=== PATIENT | male | born 1945 | race Caucasian/White ===

== ENCOUNTER 2019-09-21 09:35 | Outpatient (CLI) | payer MEDICARE ==
--- NOTE | 2019-09-21 11:11 | CT ---
CT ANGIOGRAM NECK WITH CONTRAST: DATE: 09/21/2019 HISTORY: 74-year-old male with "transient right retinal artery occlusion. Right carotid bruit" Dr. Anderson notified Dr. Yahir Huitron of the critical stenosis by telephone at 11:08 AM on posterior toda y. TECHNIQUE: After IV contrast injection, arterial bolus chasing technique scan performed from aortopulmonic windo w to mid maxillary sinus level. Coronal and sagittal 3-D MIP reconstructions. FINDINGS: Aortic arch: No dissection or aneurysm. Brachiocephalic: Normal. Right subclavian: Partially obscured by streak artifact from adjacent dense contrast bolus in right s ubclavian vein. Left subclavian: No high-grade stenosis. Right common carotid: No high-grade stenosis. Left common carotid: No high-grade stenosis. Right internal carotid: Mild calcified plaque at origin. From approximately 0.5 cm distal to the orig in to approximately 2.5 to 3 cm distal to the origin, there is a noncalcified soft plaque causing stenosis. The greatest degree of stenosis is approximately 90-99% at the distal aspect of the plaque, located approximately 2.5 cm distal to the origin of the internal carotid artery. The rest of the right cervical internal carotid artery more distally has no additional high-grade stenosis. Carotid s iphons are not included on the images. Left internal carotid: Mild calcified plaque at origin. No significant stenosis. Right vertebral: Dominant. No high-grade stenosis at origin. Very proximal portion distal to origin i s obscured by streak artifact from adjacent dense contrast material in a vein. No high-grade stenosis in the rest of the cervical vertebral artery. Left vertebral: Origin difficult to evaluate. 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
== END 2019-09-21 09:36 | disposition home or self-care (01) ==
LOC: SCSCT 09:35
PROVIDERS: ATTEND Ophthalmology
DX: R09.89 Other specified symptoms and signs involving the circulatory and respiratory systems (principal); I65.21 Occlusion and stenosis of right carotid artery
CPT/HCPCS: 70498

== ENCOUNTER 2024-11-10 09:30 | Inpatient (IN) | payer MEDICARE ==
[2024-11-10 12:14] LABS: Bacteria/HPF None Seen HPF (None Seen); Bilirubin Negative (Negative); Blood, Urine Negative (Negative); CAUTI Indications for Culture Dysuria,urgency,freq; Clarity Clear (Clear); Glucose, Urine (Dipstick) Normal (Negative); Ketone, Urine Negative (Negative); Leukocyte Negative Leu/uL (Negative); Nitrite Negative (Negative); Protein, Urine (Dipstick) Negative (Neg-Trace); RBC/HPF 0-3 HPF (0-3); Specific Gravity, Urine 1.007 (1.002-1.036); Squamous Epithelial None Seen HPF (0-3); Urobilinogen Normal mg/dL (Less than 2); WBC/HPF 0-3 HPF (0-3); pH, Urine 6.5 (5.0-9.0)
[2024-11-10 12:17] LABS: Urine Culture Reflex No No
[2024-11-10 13:15] LABS: #Basophils 0.04 10x3/uL (0.0-0.2); %Basophils 0.6 % (0.0-1.0); %Eosinophils 2.8 % (0.0-10.0); %Lymphocytes 13.9 % (21.0-51.0); %Monocytes 9.8 % (0.0-10.0); %Neutrophils 72.8 % (42.0-75.0); Hematocrit 33.6 % (42.0-52.0); Hemoglobin 10.8 g/dL (14.0-18.0); Mean Corpuscular HGB CONC 32.1 g/dL (32.0-36.0); Mean Corpuscular Volume 99.4 fL (78.0-98.0); Mean Platelet Volume 10.5 fL (7.4-10.4); Platelet Count 212 10x3/uL (130-400); RBC Distribution Width 13.9 % (11.5-14.5); Red Blood Cell (RBC) Count 3.38 mill/uL (4.70-6.10)
[2024-11-10 13:31] LABS: ALT (SGPT) 28 U/L (Less than 45); AST (SGOT) 31 U/L (11-34); Albumin 3.9 g/dL (3.1-4.5); Alkaline Phosphatase 45 U/L (40-110); Anion Gap 18 mmol/L (10-20); BUN (Urea Nitrogen) 43 mg/dL (8.4-25.7); Calc. Creatinine Clearance 0 mL/min (70-130); Calcium 9.3 mg/dL (7.8-10.44); Carbon Dioxide 20 mmol/L (23-31); Chloride 108 mmol/L (98-107); Estimated GFR 15; Globulin 3.4 g/dL (2.4-3.5); Glucose 82 mg/dL (83-110); Potassium 4.9 mmol/L (3.5-5.1); Protein, Total 7.3 g/dL (5.8-8.1); Sodium 141 mmol/L (136-145)
[2024-11-10] MEDS ORDERED: Acetaminophen 650 MG Suppository PR PRN (15:00)
[2024-11-10] MEDS ORDERED: Ondansetron ODT 4 MG TAB PO PRN (15:00)
[2024-11-10] MEDS ORDERED: Acetaminophen 325 MG TAB PO PRN (15:00)
[2024-11-10] MEDS ORDERED: Calcium Carbonate 500 MG ChewTAB PO PRN (15:00)
[2024-11-10] MEDS ORDERED: Senokot S 8.6-50 MG TAB PO PRN (15:00)
[2024-11-10] MEDS ORDERED: Ondansetron PF 4 MG/2 ML Vial IVP PRN (15:00)
[2024-11-10] MEDS ORDERED: Albuterol 200 PUFF (6.7GM INHALER) INH PRN (15:08)
[2024-11-10 15:32] VITALS: BMI 27.3
[2024-11-10] MEDS: Heparin 5,000 UNITS/ML VIAL SC SCH (15:45)
[2024-11-10] MEDS: Lidocaine 2% PF 100 mg/5 ml Syringe ONE (20:21)
[2024-11-10] MEDS: Morphine 2 MG/ML VIAL SLOW IVP PRN (20:22)
[2024-11-10 20:28] LABS: #Basophils 0.04 10x3/uL (0.0-0.2); %Basophils 0.4 % (0.0-1.0); %Eosinophils 1.6 % (0.0-10.0); %Monocytes 10.9 % (0.0-10.0); %Neutrophils 72.8 % (42.0-75.0); Hematocrit 30.3 % (42.0-52.0); Hemoglobin 9.9 g/dL (14.0-18.0); Mean Corpuscular HGB CONC 32.7 g/dL (32.0-36.0); Mean Corpuscular Volume 98.1 fL (78.0-98.0); Mean Platelet Volume 10.6 fL (7.4-10.4); Platelet Count 206 10x3/uL (130-400); RBC Distribution Width 13.9 % (11.5-14.5); Red Blood Cell (RBC) Count 3.09 mill/uL (4.70-6.10)
[2024-11-10 20:46] LABS: Anion Gap 15 mmol/L (10-20); BUN (Urea Nitrogen) 46 mg/dL (8.4-25.7); Calc. Creatinine Clearance 18 mL/min (70-130); Carbon Dioxide 22 mmol/L (23-31); Chloride 109 mmol/L (98-107); Potassium 4.2 mmol/L (3.5-5.1); Sodium 142 mmol/L (136-145)
[2024-11-10 20:47] LABS: Calcium 8.5 mg/dL (7.8-10.44); Estimated GFR 15; Glucose 125 mg/dL (83-110); Magnesium 2.2 mg/dL (1.6-2.6)
[2024-11-10] MEDS ORDERED: Phenazopyridine HCl 100 MG TAB PO PRN (20:58)
[2024-11-10] MEDS ORDERED: traMADol HCl 50 MG TAB PO PRN (20:58)
[2024-11-10] MEDS ORDERED: Zolpidem Tartrate 5 MG TAB PO PRN (21:00)
[2024-11-10] MEDS: Oxybutynin 5 MG TAB PO PRN (21:15)
[2024-11-10] MEDS: Tamsulosin HCl 0.4 MG CAP PO SCH (21:15)
[2024-11-10] MEDS: cloNIDine 0.1 MG TAB PO SCH (21:20)
[2024-11-11] MEDS: Sodium Chloride 0.9% 500 ML IV SCH (00:10)
[2024-11-11 00:54] LABS: Hematocrit 26.3 % (42.0-52.0); Hemoglobin 8.7 g/dL (14.0-18.0)
[2024-11-11 06:08] LABS: #Basophils 0.03 10x3/uL (0.0-0.2); %Basophils 0.3 % (0.0-1.0); %Eosinophils 0.3 % (0.0-10.0); %Lymphocytes 6.2 % (21.0-51.0); %Monocytes 11.1 % (0.0-10.0); %Neutrophils 81.7 % (42.0-75.0); Hematocrit 27.1 % (42.0-52.0); Hemoglobin 8.8 g/dL (14.0-18.0); Mean Corpuscular HGB CONC 32.5 g/dL (32.0-36.0); Mean Corpuscular Hemoglobin 31.8 pg (27.0-31.0); Mean Corpuscular Volume 97.8 fL (78.0-98.0); Mean Platelet Volume 10.5 fL (7.4-10.4); Platelet Count 188 10x3/uL (130-400); Red Blood Cell (RBC) Count 2.77 mill/uL (4.70-6.10)
[2024-11-11 06:25] LABS: ALT (SGPT) 20 U/L (Less than 45); AST (SGOT) 23 U/L (11-34); Albumin 3.1 g/dL (3.1-4.5); Alkaline Phosphatase 35 U/L (40-110); Anion Gap 13 mmol/L (10-20); BUN (Urea Nitrogen) 41 mg/dL (8.4-25.7); Bilirubin, Total 1.4 mg/dL (0.3-1.2); Calc. Creatinine Clearance 19 mL/min (70-130); Calcium 8.3 mg/dL (7.8-10.44); Carbon Dioxide 23 mmol/L (23-31); Chloride 111 mmol/L (98-107); Estimated GFR 16; Globulin 2.6 g/dL (2.4-3.5); Glucose 108 mg/dL (83-110); Protein, Total 5.7 g/dL (5.8-8.1); Sodium 142 mmol/L (136-145)
[2024-11-11 06:43] LABS: Free T4 (Free Thyroxine) 1.02 ng/dL (0.70-1.48)
[2024-11-11] MEDS: Sodium Chloride 0.9% 1,000 ML IV SCH ×2 (06:49→10:49)
[2024-11-11] MEDS ORDERED: hydrALAZINE 20 MG/ML VIAL SLOW IVP PRN (07:49)
[2024-11-11] MEDS: Ezetimibe 10 MG TAB PO SCH (08:48)
[2024-11-11] MEDS ORDERED: traMADol HCl 50 MG TAB PO PRN (10:47)
[2024-11-11] MEDS: Sodium Chloride 0.45% 500 ML IV SCH (10:49)
[2024-11-11] MEDS ORDERED: Tamsulosin HCl 0.4 MG CAP PO SCH (21:00)
[2024-11-12 05:10] LABS: #Basophils Less than 0.03 10x3/uL (0.0-0.2); %Basophils 0.1 % (0.0-1.0); %Lymphocytes 10.9 % (21.0-51.0); %Monocytes 12.6 % (0.0-10.0); %Neutrophils 74.2 % (42.0-75.0); Hematocrit 26.5 % (42.0-52.0); Hemoglobin 8.7 g/dL (14.0-18.0); Mean Corpuscular HGB CONC 32.8 g/dL (32.0-36.0); Mean Corpuscular Volume 97.4 fL (78.0-98.0); Mean Platelet Volume 10.6 fL (7.4-10.4); Platelet Count 178 10x3/uL (130-400); Red Blood Cell (RBC) Count 2.72 mill/uL (4.70-6.10)
[2024-11-12 05:23] LABS: Anion Gap 12 mmol/L (10-20); BUN (Urea Nitrogen) 31 mg/dL (8.4-25.7); Calc. Creatinine Clearance 25 mL/min (70-130); Calcium 8.3 mg/dL (7.8-10.44); Carbon Dioxide 21 mmol/L (23-31); Chloride 114 mmol/L (98-107); Estimated GFR 22; Glucose 103 mg/dL (83-110); Potassium 4.1 mmol/L (3.5-5.1); Sodium 143 mmol/L (136-145)
[2024-11-12 16:39] VITALS: BP 167/79; TEMP 97.8
[2024-11-12 22:36] LABS: % Free PSA 40.9 % (.); Total PSA 6.5 ng/mL (0.0-4.0)
[2024-11-13] MEDS ORDERED: FLU (Fluad Triv) TS24-25 (65UP)/MF59C/PF 45 MCG/0.5 ML Syringe IM ONE (16:30)
== END 2024-11-12 16:15 | disposition home or self-care (01) | DRG 699 ==
LOC: ERS 09:30 → ERHOLD 13:41 → SURG B 15:22 → 2NO 11-11 09:38 → OBSVTOIN 11-11 15:25
PROVIDERS: ADMIT Family Medicine; ATTEND Internal Medicine
DX: N32.0 Bladder-neck obstruction (principal); N13.30 Unspecified hydronephrosis; N17.9 Acute kidney failure, unspecified; I95.1 Orthostatic hypotension; N40.1 Benign prostatic hyperplasia with lower urinary tract symptoms; I12.9 Hypertensive chronic kidney disease with stage 1 through stage 4 chronic kidney disease, or unspecified chronic kidney disease; E78.5 Hyperlipidemia, unspecified; Z98.890 Other specified postprocedural states; N18.30 Chronic kidney disease, stage 3 unspecified; D63.1 Anemia in chronic kidney disease; Z79.899 Other long term (current) drug therapy
CPT/HCPCS: 36415; 36416; 51702; 76770; 80048; 80053; 81001; 83735; 83880; 84153; 84154; 84439; 84443; 84481; 85025; 86850; 86900; 86901; 93005; 96360; 96361; 96372; 96374; G0378; J1644; J2003; J2272; J7030